=== PATIENT | male | born 1965 | race Caucasian/White ===

== ENCOUNTER → 2019-10-14 | Outpatient (CLI) | payer BC ==
[~2019-10-14] MED LIST: AMLODIPINE-BEN1 EAC3 PO; BENAZEPRIL HCL10 MG PO; CRESTOR10 MG PO; FISH OIL 1,0001 EAC1 PO; FOLIC ACID1 MG PO; LIPITOR20 MG PO; METOPROLOL TART25 MG PO; MULTI-VITAMIN1 EACH PO; XARELTO10 MG PO; XARELTO20 MG PO
--- NOTE | 2019-10-14 12:27 | Diagnostic Imaging Report ---
EXAM: Renal Ultrasound INDICATION: ^[id number] ^[id number] ^CHRONIC KIDNEY DISEASE COMPARISON: None TECHNIQUE: Transverse and longitudinal images of the kidneys and bladder were obtained. FINDINGS: Right Kidney: Length: 8.9 cm Appearance: Normal echogenicity. Collecting system: No hydronephrosis Stones: 6 mm hyperechoic focus at the lateral aspect of the right kidney without posterior shadowing. Cyst/Mass: None Left Kidney: Length: 9.8 cm Appearance: Normal echogenicity. Collecting system: No hydronephrosis Stones: None Cyst/Mass: None Bladder: No mass or calculi. Bilateral ureteral jets seen. Prevoid volume estimate of 208 cc. The prostate measures 3.4 x 3.8 x 4.3 cm with volume estimate of 29 cc. IMPRESSION: No hydronephrosis. 6 mm hyperechoic focus at the lateral right kidney without posterior shadowing, possibly a nonobstructive calculus. Signed by: Dory Cadena MD on 10/14/2019 12:24 PM
== END ==
LOC: US 08:45
PROVIDERS: ATTEND Urology
DX: N18.9 Chronic kidney disease, unspecified (principal)
CPT/HCPCS: 76770